=== PATIENT | female | born 1950 | race Caucasian/White ===

== ENCOUNTER 2018-03-25 17:39 | Emergency (ER) | payer MEDICARE, BC ==
[2018-03-25] MEDS ORDERED: Ciprofloxacin 500 MG Tab ONE (19:30)
--- NOTE | 2018-03-26 13:49 | ER ---
DATE OF SERVICE: 03/25/2018 HISTORY OF PRESENT ILLNESS: This 67-year-old woman presents with gross hematuria. No nausea, no vomiting, no fever, no chills. She also denies any dysuria or urgency. No back aches. Symptoms started yesterday, persist today. PHYSICAL EXAMINATION: VITAL SIGNS: Stable. Afebrile. BACK: No CVA tenderness. ABDOMEN: Soft, nondistended, nontender. Positive bowel sounds. LUNGS: Clear. HEART: Regular rate and rhythm. Normal S1, S2. LABORATORY DATA: Urinalysis shows positive nitrite and loss of blood. ASSESSMENT: Hematuria due to urinary tract infection. PLAN: Cipro 500 b.i.d. x3 days. Follow up in 1 week for repeat urinalysis and re- evaluation to make sure all the hematuria, both gross and microscopic has resolved. VENKATESH /[id number] AMY
== END 2018-03-25 19:23 | disposition home or self-care (01) ==
LOC: LB.ED 17:39
DX: N39.0 Urinary tract infection, site not specified (principal)
CPT/HCPCS: 81001; 87086; 87088; 87186; 99283; A9270

== ENCOUNTER 2024-04-10 08:49 | Emergency (ER) | payer BC, MEDICARE ==
[2024-04-10 09:24] LABS: BILIRUBIN,URINE NEGATIVE (NEGATIVE); GLUCOSE,URINE NEGATIVE (NEGATIVE); KETONES,URINE NEGATIVE (NEGATIVE); LEUKOCYTE ESTERASE,URINE SMALL (NEGATIVE); NITRITE,URINE NEGATIVE (NEGATIVE); OCCULT BLOOD,URINE LARGE (NEGATIVE); PROTEIN,URINE 100 mg/dL (NEGATIVE); UROBILINOGEN,URINE 0.2 E.U./dL (0.2-1.0)
[2024-04-10 09:31] LABS: APPEARANCE,URINE TURBID (CLEAR); COLOR,URINE RED
[2024-04-10 09:32] LABS: RBC,URINE 30-40 /HPF; SQUAMOUS EPITHELIAL CELLS,UR FEW /HPF; WBC,URINE 30-40 /HPF
[2024-04-10 10:00] LABS: BASOPHILS ABSOLUTE AUTO 0.03 K/uL (0.02-0.10); BASOPHILS PERCENT AUTO 0.3 % (0.0-0.5); EOSINOPHILS ABSOLUTE AUTO 0.07 K/uL (0.04-0.40); EOSINOPHILS PERCENT AUTO 0.7 % (1.0-5.0); HEMATOCRIT 41.8 % (37.0-47.0); HEMOGLOBIN 14.1 g/dL (11.5-16.5); LYMPHOCYTES ABSOLUTE AUTO 1.43 K/uL (1.50-4.00); LYMPHOCYTES PERCENT AUTO 14.3 % (20.0-40.0); MEAN CORPUSCULAR HEMOGLOBIN 29.4 pg (27.0-32.0); MEAN CORPUSCULAR HGB CONC 33.7 g/dL (31.0-35.0); MEAN CORPUSCULAR VOLUME 87 fL (76-96); MEAN PLATELET VOLUME 10.7 fL (6.0-10.0); MONOCYTES ABSOLUTE AUTO 0.46 K/uL (0.20-0.80); MONOCYTES PERCENT AUTO 4.6 % (3.0-10.0); NEUTROPHILS ABSOLUTE AUTO 8.03 K/uL (2.00-7.50); NEUTROPHILS PERCENT AUTO 80.1 % (45.0-70.0); PLATELET COUNT,PLT 191 K/uL (150-500); RED CELL DISTRIBUTION WIDTH 12.8 % (11.0-16.0)
[2024-04-10 10:13] LABS: ANION GAP 14.6 mmol/L (5.0-15.0); BUN/CREATININE RATIO 11.4 (6-25); CALCIUM 8.5 mg/dL (8.5-10.1); CARBON DIOXIDE,CO2 24.9 mmol/L (21.0-32.0); CREATININE 0.7 mg/dL (0.55-1.02); EST CRCL DRUG DOSING (CG) 58.33 mL/min; POTASSIUM,K 4.5 mmol/L (3.5-5.1)
== END 2024-04-10 10:25 | disposition home or self-care (01) ==
LOC: LB.ED 08:49
DX: N39.0 Urinary tract infection, site not specified (principal); Z90.49 Acquired absence of other specified parts of digestive tract
CPT/HCPCS: 36415; 80048; 81001; 85025; 99283